=== PATIENT | female | born 1935 ===

== ENCOUNTER 2016-06-23 22:15 | Inpatient (IN) | payer OTHER ==
[~2016-06-23] VITALS: Ht 162.6 cm; Wt 54.4 kg
--- NOTE | 2016-06-23 22:22 | ED AMS/SEIZURE/WEAK/DIZZY ---
History of Present Illness General Chief Complaint: General Adult Stated Complaint: BIBA FOR INCREASED AMS, FEVER Source: patient Exam Limitations: clinical condition Vital Signs & Intake/Output Vital Signs & Intake/Output Vital Signs Date Time Temp Pulse Resp B/P Pulse O2 O2 Flow FiO2 Ox Delivery Rate 06/238 103.8 06/239 98 Nasal 3.0L Cannula 06/23 2217 100.5 93 18 126/73 95 Room Air ED Intake and Output 06/24 0000 06/23 1200 Intake Total Output Total Balance Patient 120 lb Weight Allergies Coded Allergies: No Known Allergies (06/23/16) Reconcile Medications Aspirin (Ecotrin*) 81 MG TABLET.DR 1 TAB PO QAM HEART/BLOOD (Reported) Multivit-Min/FA/Lycopen/Lutein (Centrum Silver Tablet) 0.4 MG-300 MCG-250 MCG TABLET 1 TAB PO DAILY SUPPLEMENT (Reported) Triage Nurses Notes Reviewed? yes Onset: Gradual Duration: day(s): Timing: recent history Injury Environment: home Severity: moderate Modifying Factors: Improves With: rest. Associated Symptoms: cough HPI: 81 yo woman h/o parkinson's, from assisted living, presents with cough, phlegm, dyspnea. She was started on augmentin yesterday. Past History Travel History Traveled to [place] past 21 day No Medical History Any Pertinent Medical History? see below for history Neurological: Parkinson's disease Surgical History Surgical History: none Family History Hx Contributory? No Review of Systems Review of Systems Constitutional: Reports: no symptoms. EENTM: Reports: no symptoms. Respiratory: Reports: no symptoms. Cardiovascular: Reports: no symptoms. GI: Reports: no symptoms. Genitourinary: Reports: no symptoms. Musculoskeletal: Reports: no symptoms. Skin: Reports: no symptoms. Neurological/Psychological: Reports: no symptoms. Hematologic/Endocrine: Reports: no symptoms. Immunologic/Allergic: Reports: no symptoms. All Other Systems: Reviewed and Negative Physical Exam Physical Exam General Appearance: well developed/nourished, mild distress Head: atraumatic, normal appearance Eyes: Bilateral: normal appearance. Ears, Nose, Throat: normal pharynx, normal ENT inspection Neck: normal inspection, supple, full range of motion Respiratory: chest non-tender, no respiratory distress, rhonchi Cardiovascular: regular rate/rhythm Gastrointestinal: normal bowel sounds, soft, non-tender, no organomegaly Back: normal inspection, normal range of motion Extremities: normal range of motion Neurologic/Psych: no motor/sensory deficits, awake, alert, oriented x 3 Skin: intact, normal color, cyanosis Core Measures ACS in differential dx? No CVA/TIA Diagnosis: No Severe Sepsis Present: No Septic Shock Present: No Progress Differential Diagnosis: pneumonia versus bronchitis versus COPD. I doubt congestive heart failure primary cardiac issue. Plan of Care: Orders Procedure Date/time Status Nothing by Mouth 06/24 B Active Saline Lock 06/24 30 Active Misc Message 06/24 30 Active ED Holding Orders 06/24 30 Active Admit to inpatient 06/24 30 Active Vital Signs 06/24 30 Active Code Status 06/24 30 Active Patient Data 06/23 2355 Active BLOOD CULTURE 06/23 2224 Active RAPID VIRAL INFLUENZA A 06/23 2221 Active BLOOD CULTURE 06/23 2221 Active TROPONIN LEVEL 06/23 2221 Complete COMPREHENSIVE METABOLIC PANEL 06/23 2221 Complete CBC WITHOUT DIFFERENTIAL 06/23 2221 Complete EKG 06/23 2221 Active Laboratory Tests 06/23/162229: Anion Gap 10, Estimated GFR > 60, BUN/Creatinine Ratio 22.9, Glucose 92, Calcium 8.4, Total Bilirubin 0.7, AST 38 H, ALT 36, Alkaline Phosphatase 71, Troponin I < 0.01, Total Protein 6.7, Albumin 3.7, Globulin 3.0, Albumin/Globulin Ratio 1.2 , CBC w Diff NO MAN DIFF REQ, RBC 4.51, MCV 90.6, MCH 30.4, RDW 14.4, MPV 8.3, Gran % 89.4 H, Lymphocytes % 4.1 L, Monocytes % 6.1, Eosinophils % 0.1, Basophils % 0.3, Absolute Granulocytes 6.4, Absolute Lymphocytes 0.3 L, Absolute Monocytes 0.4, Absolute Eosinophils 0, Absolute Basophils 0, PUBS MCHC 33.5 Microbiology 06/23 2239 BLOOD: Blood Culture - RECD 06/23 2229 BLOOD: Blood Culture - RECD 06/23 2221 NASOPHARYN: Influenza Virus A & B Rapid Smear - ORD Diagnostic Imaging: Viewed by Me: Radiology Read. Discussed w/RAD: Radiology Read. CXR Impression: no acute abnormality, no infiltrates, normal size heart, normal mediastinum Initial ED EKG: normal axis, normal intervals, normal p-waves, normal QRS complex, normal sinus rhythm Comments: PATIENT: FLOWER ADAMS PRESENT AGE: 81 PATIENT ACCOUNT NO: [id number] : 33 LOCATION: [facility] ORDERING PHYSICIAN: RENZO BLAKE MD SERVICE DATE: 06/23/16 EXAM TYPE: RAD - XRY-PORTABLE CHEST XRAY EXAMINATION: XR PORTABLE CHEST CLINICAL INFORMATION: Dyspnea. Hypoxia. COMPARISON: None TECHNIQUE: Portable AP portable view of the chest was obtained. 11:31 PM FINDINGS: Pacemaker leads in right atrium and right ventricle. Heart size normal. No pulmonary vascular congestion. Hyperinflation of lungs. Lungs are clear. No pleural effusion. IMPRESSION: No acute change of chest. DICTATED BY: MIRIAM SANDHU MD DATE/TIME DICTATED:06/23/162352 DATASTAGE ARCHITECT:DONNY DATE/TIME TRANSCRIBED:06/23/162352 CONFIDENTIAL, DO NOT COPY WITHOUT APPROPRIATE AUTHORIZATION. <Electronically signed in Other Vendor System> SIGNED BY: MIRIAM SANDHU MD 06/23/162356 Departure Departure Disposition: STILL A PATIENT Condition: Stable Clinical Impression Primary Impression: Pneumonia Secondary Impressions: Sepsis Departure Forms: Customer Survey General Discharge Information Admission Note Spoke With: FANNIE SHAH,PITA Documentation of Exam: Documentation of any treatments & extenuating circumstances including Concerns Regarding Discharge (functional status, medication knowledge or non-compliance, living conditions, etc.) that warrant an admission rather than observation: Patient with cough phlegm dyspnea hypoxia to 85% on room air. Chest x-ray negative, this is most consistent with pneumonia versus bronchitis. Patient merits O2 support IV antibiotics. Patient stable for gen med Critical Care Note Critical Care Note Critical Care Time: 30-74 min
--- NOTE | 2016-06-23 22:24 | NUR ---
PT REFUSING FLU SWAB AT THIS TIME, PT BECAME SLIGHTLY AGITATED, STATING "NO DO NOT PUT THAT THING UP MY NOSE, I DONT WANT IT!" CHARGE NURSE MADE AWARE
--- NOTE | 2016-06-23 22:27 | NUR ---
PT BIBA FROM ECF. PT C/O ALTERED MENTAL STATUS AND INCREASED TEMPERATURE. PER STAFF PT IS SLIGHTLY CONFUSED AT BASELINE BUT HAS BECOME WORSE OVER THE PAST COUPLE OF DAYS. PER EMS TEMPERATURE ON ARRIVAL WAS 101. IN THE FIELD TEMP WAS 103.8. PT HAS HX OF PACEMAKER, AND PARKINSONS. AT BEDSIDE
--- NOTE | 2016-06-23 22:27 | NUR ---
PT PLACED ON QUALITY ASSURANCE TEST PROGRAM MANAGER, ESTHER RAGSDALE AT BEDSIDE FOR BLOOD DRAW, PT SATING 88% ON RA, PLACED ON 3L, UP TO 98%. MADE AWARE.
--- NOTE | 2016-06-23 22:30 | NUR ---
BLOOD DRAWN AND SENT TO LAB. LAV,SST,BLUE,GLOVER, 1ST SET OF BLOOD CULTURES.
--- NOTE | 2016-06-23 22:43 | NUR ---
EKG IN PROGRESS
--- NOTE | 2016-06-23 22:44 | NUR ---
2ND SET OF BLOOD CULTURES DRAWN AND SENT TO LAB.
--- NOTE | 2016-06-23 23:08 | NUR ---
PT MEDICATED WITH OFFIRMEV, 1G ROCEPHIN, AND 500MG ZITHROMYCIN PER EMAR
[2016-06-23 23:17] LABS: ABSOLUTE BASOPHIL COUNT 0 /CUMM (0.0-0.2); ABSOLUTE EOSINOPHIL COUNT 0 /CUMM (0.0-0.7); ABSOLUTE GRANULOCYTE CT 6.4 /CUMM (1.4-6.5); ABSOLUTE LYMPH COUNT 0.3 /CUMM (1.2-3.4); ABSOLUTE MONOCYTE COUNT 0.4 /CUMM (0.10-0.60); BASOPHIL % 0.3 % (0.0-2.0); EOSINOPHIL % 0.1 % (0-5); HEMATOCRIT 40.9 % (37-47); MEAN CORPUSCULAR HGB 30.4 PG (27.0-31.0); MEAN CORPUSCULAR HGB CONC 33.5 G/DL (33.0-37.0); MEAN CORPUSCULAR VOLUME 90.6 FL (81.0-99.0); MEAN PLATELET VOLUME 8.3 FL (7.4-10.4); PLATELET COUNT 144 /CUMM (130-400); RBC DISTRIBUTION WIDTH 14.4 % (11.5-14.5); RED BLOOD CELL CT 4.51 /CUMM (4.20-5.40); WHITE BLOOD CELL COUNT 7.2 /CUMM (4.8-10.8)
[2016-06-23] MEDS ORDERED: CENTRUM SILVER1 EAC3 PO (23:22)
[2016-06-23] MEDS ORDERED: ASPIRIN EC81 M1 PO (23:22)
[2016-06-23 23:32] LABS: GRANULOCYTE % 89.4 % (42.2-75.2)
--- NOTE | 2016-06-23 23:57 | RADIOLOGY REPORT ---
EXAMINATION: XR PORTABLE CHEST CLINICAL INFORMATION: Dyspnea. Hypoxia. COMPARISON: None TECHNIQUE: Portable AP portable view of the chest was obtained. 11:31 PM FINDINGS: Pacemaker leads in right atrium and right ventricle. Heart size normal. No pulmonary vascular congestion. Hyperinflation of lungs. Lungs are clear. No pleural effusion. IMPRESSION: No acute change of chest.
--- NOTE | 2016-06-23 23:59 | NUR ---
PT MEDICATED WITH 30MG TORADOL FOR FEVER PER
--- NOTE | 2016-06-24 00:48 | History & Physical ---
STEFANIE SHAH,[facility] 06/24/16 0047: General Information and HPI MD Statement: I have seen and personally examined FLOWER ADAMS and documented this H&P. The patient is a 81 year old F who presented with a patient stated chief complaint of cough, altered mental status and fever . Source of Information: patient, EMS Exam Limitations: clinical condition, confusion, dementia History of Present Illness: Ms Adams is an 81-year-old female medical history of Parkinson's, chronic pain, diverticulosis who was brought in by ambulance to the emergency department on 06/23/2016 after being found to be febrile at 103F at her [facility] facility. Report from [facility] states that the patient had a fluctuating temperatures over the course of the evening and they found that the patient was febrile up to a maxiumum of 103 F. This prompted them to send her to the emergency department. Nurse at [facility] does state that the patient generally has good health, however on 06/21/2016, the patient experienced cough and symptoms of a URI prompting the facility to do a chest x-ray and routine blood work. She was started on Augmentin 875/125 mg by mouth twice a day 10 days. In the emergency department the patient did endorse cough and stated cough was nonproductive in nature. She states that her symptoms may have begun on Sunday06/19/2016. She also endorses 2 month history of dizziness. Patient denies any fever, chills, nausea, vomiting. Allergies/Medications Allergies: Coded Allergies: No Known Allergies (06/23/16) Home Med list Aspirin (Ecotrin*) 81 MG TABLET. 1 TAB PO QAM HEART/BLOOD (Reported) Multivit-Min/FA/Lycopen/Lutein (Centrum Silver Tablet) 0.4 MG-300 MCG-250 MCG TABLET 1 TAB PO DAILY SUPPLEMENT (Reported) Compliance With Home Meds: GOOD Past History Travel History Traveled to [place] past 21 day No Medical History Neurological: Parkinson's disease EENT: NONE Respiratory: pneumonia Surgical History Surgical History: none Past Family/Social History Psychosocial History Where do you live? Extended Care Facility Who Do You Live With? spouse Services at Home: None Primary Language: Iraqi Functional Ability ADLs Needs Assist: dressing, eating, toileting, bathing. Ambulation: walker IADLs Needs Assist: shopping, housework, finances, food prep, telephone, transportation, medication admin. Review of Systems Review of Systems Constitutional: Denies: chills, diaphoresis, fever, malaise. Cardiovascular: Denies: chest pain, edema, orthopena, palpitations. Respiratory: Reports: cough. Denies: orthopnea, short of breath, sputum production. GI: Denies: abdominal pain, bloating, constipation, diarrhea, distention, melena, nausea, vomiting. Genitourinary: Denies: discharge, dysuria, frequency, hematuria, hesitation. Musculoskeletal: Denies: back pain, gout, joint pain, joint swelling, muscle pain. Exam & Diagnostic Data Last 24 Hrs of Vital Signs/I&O Vital Signs Date Time Temp Pulse Resp B/P Pulse O2 O2 Flow FiO2 Ox Delivery Rate 06/24 0121 98.2 75 19 101/64 97 Nasal 2.0L Cannula 06/23 2308 103.8 06/23 2229 98 Nasal 3.0L Cannula 06/23 2218 100.5 93 18 126/73 95 Room Air Intake & Output 06/24 0800 06/24 0000 06/23 1600 Intake Total 650 Output Total Balance 650 Intake, IV 650 Patient 54.431 kg Weight Physical Exam General Appearance Alert, Cooperative, No Acute Distress, Bilaterral Tremors of Upper and Lower Extremities HEENT PERRLA, EOMI, Muccous Membranes Dry Neck Supple Lymphatic Cervical nl Cardiovascular Regular Rate, Normal S1, Normal S2, No Murmurs, Pacemaker Lungs Clear to Auscultation Abdomen Normal Bowel Sounds, Soft, No Tenderness, No Hepatospenomegaly Neurological Strength at 5/5 X4 Ext, Sensation Intact Extremities No Cyanosis, No Edema, Normal Pulses Vascular Normal Pulses Last 24 Hrs of Labs/Micheal: Laboratory Tests 06/23/160: Anion Gap 10, Estimated GFR > 60, BUN/Creatinine Ratio 22.9, Glucose 92, Calcium 8.4, Total Bilirubin 0.7, AST 38 H, ALT 36, Alkaline Phosphatase 71, Troponin I < 0.01, Total Protein 6.7, Albumin 3.7, Globulin 3.0, Albumin/Globulin Ratio 1.2 , CBC w Diff NO MAN DIFF REQ, RBC 4.51, MCV 90.6, MCH 30.4, RDW 14.4, MPV 8.3, Gran % 89.4 H, Lymphocytes % 4.1 L, Monocytes % 6.1, Eosinophils % 0.1, Basophils % 0.3, Absolute Granulocytes 6.4, Absolute Lymphocytes 0.3 L, Absolute Monocytes 0.4, Absolute Eosinophils 0, Absolute Basophils 0, PUBS MCHC 33.5 Microbiology 06/23 2239 BLOOD: Blood Culture - RECD 06/23 2229 BLOOD: Blood Culture - RECD 06/23 2221 NASOPHARYN: Influenza Virus A & B Rapid Smear - ORD Diagnostic Data EKG Results Rate 98 V paced Complex LBBB QT 380 CXR Results EXAM TYPE: RAD - XRY-PORTABLE CHEST XRAY IMPRESSION: No acute change of chest. DICTATED BY: MIRIAM SANDHU MD Assessment/Plan Assessment: Ms Adams is an 81-year-old female past medical history of Parkinson's disease, chronic pain, and diverticulosis who presented to the emergency department on 06/23/2016 with symptoms of upper respiratory tract infection. Will admit the patient to general medicine for close monitoring and antibiotic administration. #Hypoxia, requiring O2 Suplementation Likely due to community-acquired pneumonia versus HCAP, versus Influenza. Continue patient on ceftriaxone and azithromycin Lower respiratory cultures, tailor coverage appropirately. Viral Flu Rapid Influenza, if positive begin the patient on Tamiflu, consider discontinuing antibiotics. CBC in AM #Tachycardia and increased O2 Requirements CTA rule out PE #AMS Rule out UTI. UA, UC and Urine toxicology #History of dizziness Check orthostatics in a.m. Gentle IVF #History of Parkinson's disease Confirm medication list in a.m. Does not appear that the patient is on any antiparkinson medication #Diet Nothing by mouth for now consider swallow eval in a.m. #DVT prophylaxis Heparin subcutaneous #CODE STATUS Full Code As Ranked By This Provider Problem List: 1. Parkinsons disease 2. Hypoxia 3. Influenza Core Measures/Miscellaneous Acute Coronary Syndrome ACS Diagnosis: No Cerebrovascular Accident CVA/TIA Diagnosis: No Congestive Heart Failure CHF Diagnosis: No Venous Thromboembolism VTE Risk Factors: Age > 40 VTE Prophylaxis Ordered Inpt: Pharm- Lovenox No Mech VTE prophylaxis d/t: No contraindications No VTE Pharm Prophylaxis d/t: No contraindications VTE Diagnosis: No VTE Type: NONE VTE Confirmed by (Test): NONE Severe Sepsis Severe Sepsis Present: No Septic Shock Septic Shock Present: No Miscellaneous Documentation Attending Case Discussed With: MILADY GRECO [facility] Primary Care Physician: NICKIE SCHAEFER MD Patient sees these Specialists NA Level of Patient Care: General Medicine SURINDER SHAH,[facility] 06/24/16 0130: Resident Review Statement Resident Statement: examined this patient, discussed with sport intern, agreed with sport intern Other Findings: 81 y/o woman with a PMH of Parkinson's Disease and PPM placement, who presents to the ED after being sent in from her Assisted Living for cough and fevers. She was found to be febrile to 103.8 on the field. After arrival in the ED, she desaturated to 89% and was put on 3.0L after which she was found to be saturating at 98%. Patient was found to be confused at the time of the interview and could not give us a clear timeline regarding her symptoms, if any. Her POA is her son, Adarsh, who lives in [place]. Per the facility, the patient was found to be coughing with a temperature. She had a CXR, CBC and CMP done, results of which are currently unavailable. She was subsequently started on Augmentin on . Vitals in the ED: 103.8/93/18/126/73/98% on 3.0L Pertinent labs: Were WNL Exam: AAOX2, not oriented to time. Diminished lung sounds bilaterally. S1S2 heard, RRR. Abdomen soft and non-tender. No pedal edema. Problem List: 1) Hypoxia 2/2 PNA (CAP) vs PE vs Influenza 2) Parkinson's Disease with baseline confusion Plan: * Admit to General Medicine * CTA to r/o PE * Start IVF * Ceftriaxone and Azithromycin for CAP * Check Utox to r/o other medications as a source of ongoing confusion. * Check U/A, Rapid Flu * DVT PPx: SubQ Heparin * Pain Pathway: Tylenol PRN * Code staus: No paperwork found regarding the patient's code status. Will keep her as a FC for now. Please get in touch with the family in the AM, so this can be clarified. FANNIE SHAH, [facility] 06/24/16 0541: Attending MD Review Statement Attending Statement Attending MD Statement: examined this patient, discuss w/resident/PA/SYSTEMS ADMIN, agreed w/resident/PA/SYSTEMS ADMIN Attending Assessment/Plan: 81 yo F with h/o Parkinson's disease, with PPM (?reason), is brought in from assisted living ([facility]), for confusion, cough and fever of 101. Patient unable to provide a clear history. Patient was apparently started on Augmentin 1 day prior for possible pneumonia. While in the ER, her temp was 103, sats 88% RA --> 98% on 3L, BP 114/60. Labs unremarkable. Flu swab positive. CXR: neg. CTA: no PE. EKG: paced. 1. Hypoxia and fever in the setting of influenza. No evidence of pneumonia. GM admit, TRC nebs, follow cultures. In the ER, she received ceftriaxone and azithro for clincial pneumonia, however patient does not have leukocytosis, CT neg for pneumonia, hence will DC antibiotics. Treat influenza with tamiflu. Check UA, UC and urine drug screen. Gentle IV fluids. DVT ppx Lovenox. Full code (please reach out to Son who is POA in AM as code status needs to be clarified).
--- NOTE | 2016-06-24 00:52 | NUR ---
HOUSE STAFF AT BEDSIDE
--- NOTE | 2016-06-24 00:58 | NUR ---
PT PLACED ON BEDPAN BY ESTHER MORA, PT HAS NO URINE OUTPUT
--- NOTE | 2016-06-24 01:15 | NUR ---
BED ASSIGNMENT [id number]
--- NOTE | 2016-06-24 01:29 | NUR ---
REPORT GIVEN TO WANDY CAMPOS
--- NOTE | 2016-06-24 01:44 | NUR ---
PT ADAMANTLY REFUSED BOTH SETS OF FLU SWABS, PT BECAME SLIGHTLY AGITATED AND WOULD NOT ALLOW THIS RN TO OBTAIN SAID FLU SWAB. CHARGE NURSE MADE AWARE.
--- NOTE | 2016-06-24 01:49 | NUR ---
PT PLACED ON BEDPAN WITH ASSISTANCE BY THIS RN AND MST MORGAN
--- NOTE | 2016-06-24 01:51 | NUR ---
PT ASKED AGAIN ABOUT OBTAINING FLU SWAB, PT DECLINED ADAMANTLY. CHARGE NURSE MADE AWARE.
--- NOTE | 2016-06-24 02:05 | NUR ---
PT TO CAT SCAN VIA STRETCHER
[2016-06-24 03:08] VITALS: BP 114/60
--- NOTE | 2016-06-24 03:24 | CT SCAN REPORT ---
EXAMINATION: CT ANGIOGRAM OF THE CHEST WITH AND WITHOUT CONTRAST (CT PULMONARY ANGIOGRAM FOR PE) CLINICAL INFORMATION: SUDDEN DESATURATION WITH MINIMAL TACHYCARDIA COMPARISON: None TECHNIQUE: Prior to contrast administration, noncontrast localization images were obtained. Subsequently, multidetector volumetric imaging was performed from the thoracic inlet to below the diaphragms following the administration of 95 mL Optiray intravenous contrast. No contrast reaction reported Sagittal, coronal, and MIP oblique sagittal reformatted images were obtained on the CT workstation, uploaded to PACS, and reviewed. Total exam dose-length product 216.48 mGy-cm FINDINGS: QUALITY OF STUDY/CONTRAST BOLUS: Satisfactory. PULMONARY ARTERIES: No central or segmental pulmonary emboli. THORACIC AORTA: Atherosclerotic vascular wall calcifications of aorta without aneurysm. LUNG: Linear scarring or atelectasis at lung bases. No acute infiltrate. Central bronchial airways are open. PLEURA: No pleural effusion or pneumothorax. MEDIASTINUM: Normal heart size. No pericardial effusion. No hilar or mediastinal lymphadenopathy. No evidence of septal bowing or right heart strain. Pacemaker leads in heart. CHEST WALL/AXILLA: No axillary or internal mammary lymphadenopathy. OSSEOUS STRUCTURES: No acute or suspicious osseous abnormality. UPPER ABDOMEN: Unremarkable. No reflux of contrast into the hepatic veins to suggest elevated right heart pressures. IMPRESSION: No acute abnormality. No evidence of pulmonary embolism. VTE: negative
--- NOTE | 2016-06-24 04:00 | NUR ---
PT ARRIVED TO FLOOR AT 0246 VIA STRETCHER. PT DROWSY/AROUSABLE OREINTED TO SELF ONLY. IV TO LFA #18 PREHOSPITAL AND #20 RFA 06/23/16. IV FLUIDS STARTED. SKIN INTACT, LUNGS CLEAR, ON 2L NC, VITALS STABLE. ACTIVE ORDERS FOR FLU SWAB COMPLETED. PT UNABLE TO VOID AT THIS TIME FOR URINE SAMPLE, BLADDER SCAN SHOWED 120ML. PT IS UNABLE TO PROVIDE MEDIAL HISTORY. OFFERS NO COMPLIANTS AT THIS TIME. WILL CONTINUE TO MONITOR.
--- NOTE | 2016-06-24 04:19 | NUR ---
LAB CALLED AT 0415, PT POSITIVE FOR INFLUENZA A. JACQUELYN WATTS MD MADE AWARE, PT ON DROPLET PRECAUTIONS
--- NOTE | 2016-06-24 05:42 | Admission Certification ---
Admission Certification Certification Statement - As attending physician, I certify that at the time of - admission, based on clinical presentation, severity of - symptoms, need for further diagnostic testing and - therapeutic interventions, and risk of adverse outcomes - without in-hospital treatment, in my clinical assessment, - this patient requires an acute hospital stay for a minimum - of two nights or longer. I have also considered psychsocial - factors such as support system, advanced age, financial - issues, cognitive issues, and failed out-patient treatments, - past re-admission history, safety of patient, and lack of - compliance as applicable. Specific rationale supporting this admission is: Hypoxia, fever with confusion in the setting of Influenza.
[2016-06-24 07:04] VITALS: BP 146/78
--- NOTE | 2016-06-24 14:29 | PN- Att Addend ---
Attending Addendum Attending Brief Note Patient seen and examined. 81-year-old female past medical history of Parkinson 's disease and previous pacemaker placement who is here with acute influenza. She was febrile to 103 and her flu swab is positive. She is on Tamiflu by mouth. Her CTA was negative for pneumonia so she doesn't have pneumonitis or a superimposed bacterial pneumonia and no need to continue antibiotics. Will encourage by mouth intake and DC IV fluids. PT eval and out of bed.
[2016-06-24 15:03] VITALS: BP 130/70
[2016-06-24 22:00] VITALS: BP 150/80
[2016-06-25 06:53] VITALS: BP 144/78
[2016-06-25 08:22] LABS: ABSOLUTE BASOPHIL COUNT 0 /CUMM (0.0-0.2); ABSOLUTE EOSINOPHIL COUNT 0 /CUMM (0.0-0.7); ABSOLUTE LYMPH COUNT 1.5 /CUMM (1.2-3.4); ABSOLUTE MONOCYTE COUNT 0.5 /CUMM (0.10-0.60); BASOPHIL % 0.7 % (0.0-2.0); EOSINOPHIL % 0.2 % (0-5); GRANULOCYTE % 49.4 % (42.2-75.2); HEMATOCRIT 42.4 % (37-47); MEAN CORPUSCULAR HGB 30.7 PG (27.0-31.0); MEAN CORPUSCULAR HGB CONC 33.7 G/DL (33.0-37.0); MEAN CORPUSCULAR VOLUME 91.1 FL (81.0-99.0); MEAN PLATELET VOLUME 8.3 FL (7.4-10.4); PLATELET COUNT 122 /CUMM (130-400); RBC DISTRIBUTION WIDTH 14.2 % (11.5-14.5); RED BLOOD CELL CT 4.65 /CUMM (4.20-5.40); WHITE BLOOD CELL COUNT 4.1 /CUMM (4.8-10.8)
--- NOTE | 2016-06-25 08:53 | PN- Att Addend ---
Attending Addendum Attending Brief Note Patient appears to be doing okay. She denies any complaints but she's not a reliable informant. She denies cough chest pain or shortness of breath. On exam her MAXIMUM TEMPERATURE is 100.6, blood pressures 140/78, respiratory rate is 18, sat is 97% on 2 L. Lungs have decreased breath sounds at the bases, heart is S1-S2 regular, abdomen is soft nontender and she has no pedal edema. Labs are pending. She is an 81-year-old with some cognitive impairment it appears although not documented in the history. She is here with acute influenza that is being treated with Tamiflu. CTA was negative for pneumonia or PE. She was dehydrated with hypovolemic hyponatremia and got some IV fluids. Today we'll try and taper off her oxygen and have PT work with her.
[2016-06-25 15:47] VITALS: BP 140/80
[2016-06-25 23:42] VITALS: BP 136/76
[2016-06-26 07:13] VITALS: BP 140/82
--- NOTE | 2016-06-26 07:28 | PN- Housestaff ---
LEON SHAH,KISHA 06/26/16 0728: Subjective Follow-up For: positive flu h/o PD Subjective: patient has been tolerating well Review of Systems Constitutional: Reports: see HPI. Objective Last 24 Hrs of Vital Signs/I&O Vital Signs Date Time Temp Pulse Resp B/P Pulse O2 O2 Flow FiO2 Ox Delivery Rate 06/26 0713 96.8 74 18 140/82 96 Room Air 06/26 0000 94 Room Air 06/25 2342 97.5 66 16 136/76 94 Room Air 06/25 1600 Room Air 06/25 1547 97.5 72 18 140/80 98 06/25 1430 Room Air Intake & Output 06/26 1600 06/26 0800 06/26 0000 Intake Total 150 970 Output Total 2351 Balance 150 -1381 Intake, IV 10 Intake, Oral 150 960 Number 1 Bowel Movements Output, Stool 1 Output, Urine 2350 Physical Exam General Appearance: Alert, Oriented X3 Skin: No Rashes, No Breakdown HEENT: Atraumatic, PERRLA Neck: Supple, No JVD Lymphatic: Axillary nl, Cervical nl Cardiovascular: Normal S1, Normal S2 Lungs: b/l decreased airway entry Abdomen: Soft, No Tenderness Neurological: Normal Speech, Strength at 5/5 X4 Ext Extremities: No Clubbing, No Cyanosis Assessment/Plan Assessment: 81 y/o woman with a PMH of Parkinson's Disease , who presents to the ED after being sent in from her Assisted Living for cough and fevers. She was found to be febrile to 103.8 on the field. After arrival in the ED, she desaturated to 89% and was put on 3.0L after which she was found to be saturating at 98%. Patient is being moniotored in the hospital for the following problems 1. Acute hypoxic respiratory failure which is resolved 2. Positive influenza type A currently on Tamiflu 3. History of Parkinson's disease 4. History of and pacemaker placement Plan We will continue monitoring on general medicine floor, the patient has responded well to the treatment and has been tapered off the oxygen therapy. She is currently ambulating and breathing on room air. She is on day 3 of Tamiflu Patient needs to ambulate and feels that she is not strong enough to be discharged today. Physical therapy recommended home physical therapy for further evaluation for the patient We will communicate with the patient's daughter and talk about further discharge plan-likely STR placement. Patient is full code DVT prophylaxis at all times CommunicATED TO CM for possible STR placement. Problem List: 1. Pneumonia 2. Hypoxia 3. Influenza Pain Ratin Pain Location: back Pain Goal: Remain pain free Pain Plan: po tylenol asneeded Tomorrow's Labs & Rationales: cbc and BEP AYDEE FUNK MD 06/26/16 1503: Attending MD Review Statement Attending Statement Attending MD Statement: examined this patient, discuss w/resident/PA/DIRECTOR OF HOME CARE HOSPICE, agreed w/resident/PA/DIRECTOR OF HOME CARE HOSPICE, reviewed EMR data (avail), discussed with nursing, discussed with case mgmt, amended to note Attending Assessment/Plan: The patient was seen and discussed with house staff. Agree with the plan of care as outlined. Continue Tamiflu. Note: The patient did have acute hypoxic respiratory failure on admission with pulse ox on RA in low 80's. Now weaned off of oxygen.
[2016-06-26] MEDS ORDERED: TAMIFLU30 M1 PO (11:37)
--- NOTE | 2016-06-26 11:38 | Patient Discharge Instructions ---
Discharge Instructions General Discharge Information You were seen/treated for: Respiratory distress secondary to flu History of Parkinson's disease Special Instructions: The follow-up with the primary care physician 1 week Acute Coronary Syndrome Inclusion Criteria At DC or during hospital stay patient has or had the following: ACS DIAGNOSIS No Discharge Core Measures Meds if any: Prescribed or Continued at Discharge Meds if any: NOT Prescribed or Continued at Discharge Congestive Heart Failure Inclusion Criteria At DC or during hospital stay patient has or had the following: CHF DIAGNOSIS No Discharge Core Measures Meds if any: Prescribed or Continued at Discharge Meds if any: NOT Prescribed or Continued at Discharge Cerebrovascular accident Inclusion Criteria At DC or during hospital stay patient has or had the following: CVA/TIA Diagnosis No Discharge Core Measures Meds if any: Prescribed or Continued at Discharge Meds if any: NOT Prescribed or Continued at Discharge Venous thromboembolism Inclusion Criteria VTE Diagnosis No VTE Type NONE VTE Confirmed by (Test) NONE Discharge Core Measures - Per Current guidelines, there needs to be overlap - treatment for the first 5 days of Warfarin therapy. - If discharged on Warfarin prior to 5 days of - overlap therapy, the patient will need to be - assessed for post discharge needs including - *Post discharge parental anticoagulation - *Warfarin and/or parental anticoagulation education - *Follow up date to check INR post discharge At least 5 days overlap therapy as Inpatient No Meds if any: Prescribed or Continued at Discharge Note: Overlap Therapy is Warfarin and Anticoagulant Meds if any: NOT Prescribed or Continued at Discharge
[2016-06-26 16:24] VITALS: BP 130/80
[2016-06-26 22:44] VITALS: BP 140/80
--- NOTE | 2016-06-27 04:57 | Discharge Summary ---
Visit Information Visit Dates Admission Date: 06/24/16 Discharge Date: 06/30/16 Hospital Course Course Attending Physician: AYDEE FUNK MD Primary Care Physician: NICKIE SCHAEFER MD Hospital Course: 80-year-old female with a past medical history of Parkinson disease, permanent pacemaker placement, resident of an assisted living, who presented to the [facility] with persistent shortness of breath and productive cough. The patient was found to be hypoxic in the emergency department and the flu swab done in the emergency department was positive for rapid influenza type a The patient was then admitted to the general medicine floor with initial vitals white physical exam and imaging as follows: While in the ER, her temp was 103, sats 88% RA --> 98% on 3L, BP 114/60. Labs unremarkable. Flu swab positive. CXR: neg. CTA: no PE. EKG: paced. The patient was admitted to general medicine floor and was treated as follows Hospital course 1. Positive rapid flu with type A influenza 2. History of Parkinson disease 3. History of pacemaker placement The patient was started on Tamiflu, and is completing a 5 day course of the medication on 06/28/2016. The patient was initially on nasal oxygen but was done later weaned off and the patient has been on room air saturating well in the last 48 hours. The patient also ambulated with physical therapy and was found not to desaturate on room air. She was recommended by the physical therapy to be discharged to short-term rehabilitation for further management The patient needs to follow-up with her primary care physician in one week of discharge Allergies: Coded Allergies: No Known Allergies (06/23/16) Pertinent Lab Results: Laboratory Tests 06/25 0720 Chemistry Sodium (137 - 145 mmol/L) 136 L Potassium (3.5 - 5.1 mmol/L) 3.8 Chloride (98 - 107 mmol/L) 101 Carbon Dioxide (22 - 30 mmol/L) 28 Anion Gap (5 - 16) 7 BUN (7 - 17 mg/dL) 13 Creatinine (0.5 - 1.0 mg/dL) 0.8 Estimated GFR (>60 ml/min) > 60 BUN/Creatinine Ratio (7 - 25 %) 16.3 Hematology CBC w Diff NO MAN DIFF REQ WBC (4.8 - 10.8 /CUMM) 4.1 L RBC (4.20 - 5.40 /CUMM) 4.65 Hgb (12.0 - 16.0 G/DL) 14.3 Hct (37 - 47 %) 42.4 MCV (81.0 - 99.0 FL) 91.1 MCH (27.0 - 31.0 PG) 30.7 RDW (11.5 - 14.5 %) 14.2 Plt Count (130 - 400 /CUMM) 122 L MPV (7.4 - 10.4 FL) 8.3 Gran % (42.2 - 75.2 %) 49.4 Lymphocytes % (20.5 - 51.1 %) 37.8 Monocytes % (1.7 - 9.3 %) 11.9 H Eosinophils % (0 - 5 %) 0.2 Basophils % (0.0 - 2.0 %) 0.7 Absolute Granulocytes (1.4 - 6.5 /CUMM) 2.0 Absolute Lymphocytes (1.2 - 3.4 /CUMM) 1.5 Absolute Monocytes (0.10 - 0.60 /CUMM) 0.5 Absolute Eosinophils (0.0 - 0.7 /CUMM) 0 Absolute Basophils (0.0 - 0.2 /CUMM) 0 PUBS MCHC (33.0 - 37.0 G/DL) 33.7 Disposition Summary Disposition Principal Diagnosis: Positive influenza Additional Diagnosis: h/o Parkinson's disease Discharge Disposition: SNF Discharge Instructions General Discharge Information Code Status: Full Code Patient's Diet: As tolerated Patient's Activity: As tolerated Follow-Up Instructions/Appts: Please follow-up with the primary care physician in one week Tamiflu to be finished on 06/28/2016 Medications at Discharge Discharge Medications: Continue taking these medications: Aspirin (Ecotrin*) 81 MG TABLET.DR 1 Tablet ORAL Every Morning Comments: Last Taken:06/30/16 Time:9AM Multivit-Min/FA/Lycopen/Lutein (Centrum Silver Tablet) 0.4 MG-300 MCG-250 MCG TABLET 1 Tablet ORAL DAILY Comments: Last Taken: Time:NOT GIVEN ON THIS ADMISSION Copies To: OLIVE SHAH,NICKIE Morales Attending Review Statement Documenting Attending: AYDEE FUNK MD Other Findings: The patient was seen and discussed with house staff. Agree with the plan of care upon discharge.
--- NOTE | 2016-06-27 04:57 | PN- Housestaff ---
LEON SHAH,KISHA 06/27/16 0456: Subjective Follow-up For: Positive positive stool and currently being treated with Tamiflu Subjective: Patient has been doing fine. No respiratory symptoms Review of Systems Constitutional: Reports: see HPI. Objective Last 24 Hrs of Vital Signs/I&O Vital Signs Date Time Temp Pulse Resp B/P Pulse O2 O2 Flow FiO2 Ox Delivery Rate 06/27 0737 97.8 72 14 150/84 98 Room Air 06/27 0000 96 Room Air 06/26 2244 98.8 76 18 140/80 96 Room Air 06/26 1624 98.2 80 20 130/80 98 06/26 1126 Room Air 06/26 1125 Room Air 2.0L Intake & Output 06/27 1600 06/27 0800 06/27 0000 Intake Total 400 500 Output Total Balance 400 500 Intake, Oral 400 500 Physical Exam General Appearance: Alert, Oriented X3 Skin: No Rashes, No Breakdown HEENT: Atraumatic, PERRLA Neck: Supple, No JVD Cardiovascular: Regular Rate, Normal S1, Normal S2 Lungs: bilateral normal chest expansion Abdomen: Soft, No Tenderness Assessment/Plan Assessment: 81 y/o woman with a PMH of Parkinson's Disease , who presents to the ED after being sent in from her Assisted Living for cough and fevers. She was found to be febrile to 103.8 on the field. After arrival in the ED, she desaturated to 89% and was put on 3.0L after which she was found to be saturating at 98%. Patient is being moniotored in the hospital for the following problems 1. Acute hypoxic respiratory failure which is resolved 2. Positive influenza type A currently on Tamiflu 3. History of Parkinson's disease 4. History of and pacemaker placement Plan We will continue monitoring on general medicine floor, the patient has responded well to the treatment and has been tapered off the oxygen therapy. She is currently ambulating and breathing on room air. She is on day 4 of Tamiflu Evaluated by the physical therapy who recommended that the patient should be stable for [facility] discharge Continue with all other home medications Patient is full code DVT prophylaxis at all times CommunicATED TO CM, awaiting bed placement at [facility] Problem List: 1. Influenza Pain Ratin Pain Location: none Pain Goal: Remain pain free Pain Plan: po tylenol as needed Tomorrow's Labs & Rationales: none AYDEE FUNK MD 06/27/16 1740: Attending MD Review Statement Attending Statement Attending MD Statement: examined this patient, discuss w/resident/PA/DIRECTOR OF ANCILLARY SERVICES, agreed w/resident/PA/DIRECTOR OF ANCILLARY SERVICES, reviewed EMR data (avail), discussed with nursing, discussed with case mgmt, amended to note Attending Assessment/Plan: The patient was seen and discussed with house staff. Agree with plan of care as outlined.
[2016-06-27 07:37] VITALS: BP 150/84
[2016-06-27] MEDS ORDERED: TAMIFLU30 M1 PO (08:44)
[2016-06-27 14:42] VITALS: BP 130/72
[2016-06-27 22:51] VITALS: BP 140/80
[2016-06-28 06:57] VITALS: BP 120/80
--- NOTE | 2016-06-28 08:58 | PN- Housestaff ---
ANI SHAH,MONIQUE 06/28/16 0849: Subjective Follow-up For: Positive flue Complaints: no complaints Subjective: Feels well, no complaints. Eating breakfast this morning without any issues. Review of Systems Constitutional: Reports: see HPI. Objective Last 24 Hrs of Vital Signs/I&O Vital Signs Date Time Temp Pulse Resp B/P Pulse O2 O2 Flow FiO2 Ox Delivery Rate 06/28 0657 97.3 76 20 120/80 97 Room Air 06/27 2251 97.7 72 20 140/80 97 Room Air 06/27 1442 97.7 68 20 130/72 96 06/27 1050 Room Air Intake & Output 06/28 1600 06/28 0800 06/28 0000 Intake Total 240 Output Total 526 300 Balance -526 -60 Intake, Oral 240 Output, Stool 1 Output, Urine 525 300 Physical Exam General Appearance: Alert, Cooperative Skin: No Rashes HEENT: Atraumatic, PERRLA, EOMI Neck: Supple, No JVD Lymphatic: Cervical nl Cardiovascular: Regular Rate, Normal S1, Normal S2 Lungs: Clear to Auscultation, Normal Air Movement Abdomen: Normal Bowel Sounds, Soft, No Tenderness Neurological: Normal Speech Extremities: No Edema, Normal Pulses Current Medications: Current Medications Sig/Deangelo Start time Last Medication Dose Route Stop Time Status Admin Acetaminophen 650 MG Q6P PRN 06/24 0130 AC 06/25 PO 0203 Aspirin Buffered 81 MG QAM 06/25 1000 AC 06/27 PO 0958 Heparin Sodium 5,000 UNIT Q8 06/24 0600 AC 06/28 (Porcine) IN 0649 Oseltamivir Phosphate 30 MG BID 06/24 0600 AC 06/27 PO 06/28 2201 2229 Assessment/Plan Assessment: 81 y/o woman with a PMH of Parkinson's Disease, who presents to the ED after being sent in from her assisted living for cough and fevers. She was found to be febrile to 103.8 on the field. After arrival in the ED, she desaturated to 89% and was put on 3.0L after which she was found to be saturating at 98%. Patient is being moniotored in the hospital for the following problems 1. Acute hypoxic respiratory failure which is resolved 2. Positive influenza type A currently on Tamiflu 3. History of Parkinson's disease 4. History of pacemaker placement Plan We will continue monitoring on general medicine floor, the patient has responded well to the treatment and has been tapered off the oxygen therapy. She is currently ambulating and breathing on room air. She is on day 5 of Tamiflu, should complete course today. PT recommends that should be stable for [facility] discharge Continue with all other home medications Patient is full code DVT prophylaxis at all times Communicated TO CM, awaiting bed placement at [facility] Problem List: 1. Influenza 2. Parkinsons disease Pain Ratin Pain Location: no pain Pain Goal: Remain pain free Pain Plan: c/w current management Tomorrow's Labs & Rationales: no labs for tomorrow DVT/Prophylaxis: pharmacological AYDEE FUNK MD 06/28/16 1532: Attending MD Review Statement Attending Statement Attending MD Statement: examined this patient, discuss w/resident/PA/CHECKOUT OPERATOR, agreed w/resident/PA/CHECKOUT OPERATOR, reviewed EMR data (avail), discussed with nursing, discussed with case mgmt, amended to note Attending Assessment/Plan: The patient was seen and discussed with house staff. Agree with plan of care as outlined.
[2016-06-28 14:49] VITALS: BP 145/70
[2016-06-28 22:38] VITALS: BP 130/70
[2016-06-29 06:55] VITALS: BP 120/80
--- NOTE | 2016-06-29 08:15 | PN- Housestaff ---
ANI SHAH,MONIQUE 06/29/16 0812: Subjective Follow-up For: Positive flue Complaints: no complaints Subjective: Sitting in chair, having breakfast without any complaints. Review of Systems Constitutional: Reports: see HPI. Objective Last 24 Hrs of Vital Signs/I&O Vital Signs Date Time Temp Pulse Resp B/P Pulse O2 O2 Flow FiO2 Ox Delivery Rate 06/29 0655 97.9 87 20 120/80 96 Room Air 06/29 0000 93 Room Air 06/28 2238 97.3 70 20 130/70 93 Room Air 06/28 1640 Room Air 06/28 1449 97.2 62 20 145/70 96 06/28 0946 Room Air Intake & Output 06/29 1600 06/29 0800 06/29 0000 Intake Total 800 240 Output Total 300 500 Balance 500 -260 Intake, Oral 800 240 Output, Urine 300 500 Physical Exam General Appearance: Alert, Cooperative, No Acute Distress Skin: No Rashes HEENT: Atraumatic, EOMI Neck: Supple, No JVD Lymphatic: Cervical nl Cardiovascular: Regular Rate, Normal S1, Normal S2 Lungs: Clear to Auscultation, Normal Air Movement Abdomen: Normal Bowel Sounds, Soft, No Tenderness Neurological: Normal Speech Extremities: No Edema Current Medications: Current Medications Sig/Deangelo Start time Last Medication Dose Route Stop Time Status Admin Acetaminophen 650 MG Q6P PRN 06/24 0130 AC 06/25 PO 0203 Aspirin Buffered 81 MG QAM 06/25 1000 AC 06/28 PO 0941 Heparin Sodium 5,000 UNIT Q8 06/24 0600 AC 06/29 (Porcine) SC 0606 Oseltamivir Phosphate 30 MG BID 06/24 0600 DC 06/28 PO 06/28 2201 2134 Patient Medication 1 ED .[facility] 06/[address] [facility] ED 06/28 1408 Assessment/Plan Assessment: 81 y/o woman with a PMH of Parkinson's Disease, who presents to the ED after being sent in from her assisted living for cough and fevers. She was found to be febrile to 103.8 on the field. After arrival in the ED, she desaturated to 89% and was put on 3.0L after which she was found to be saturating at 98%. Patient is being moniotored in the hospital for the following problems 1. Acute hypoxic respiratory failure which is resolved 2. Positive influenza type A currently on Tamiflu 3. History of Parkinson's disease 4. History of pacemaker placement Plan We will continue monitoring on general medicine floor, the patient has responded well to the treatment and has been tapered off the oxygen therapy. She is currently ambulating and breathing on room air. She has completed course of tamiflu last night. PT recommends that should be stable for [facility] discharge Continue with all other home medications Patient is full code DVT prophylaxis at all times Communicated TO CM, awaiting bed placement at [facility] Problem List: 1. Influenza 2. Parkinsons disease Pain Ratin Pain Location: no pain Pain Goal: Remain pain free Pain Plan: continue to be pain free Tomorrow's Labs & Rationales: n/a AYDEE FUNK MD 06/29/16 1504: Attending MD Review Statement Attending Statement Attending MD Statement: examined this patient, discuss w/resident/PA/TAX ATTORNEY, agreed w/resident/PA/TAX ATTORNEY, reviewed EMR data (avail), discussed with nursing, discussed with case mgmt, amended to note Attending Assessment/Plan: The patient was seen and discussed with house staff. Agree with the plan of care as outlined.
[2016-06-29 14:39] VITALS: BP 138/74
[2016-06-29 23:31] VITALS: BP 130/70
[2016-06-30 07:43] VITALS: BP 156/92
--- NOTE | 2016-06-30 08:10 | PN- Housestaff ---
ANI SHAH,MONIQUE 06/30/16 0802: Subjective Follow-up For: Positive flue Complaints: no complaints Subjective: Seen and examined at bedside. sitting in chair, having breakfast without any complaints. Review of Systems Constitutional: Reports: see HPI. Objective Last 24 Hrs of Vital Signs/I&O Vital Signs Date Time Temp Pulse Resp B/P Pulse O2 O2 Flow FiO2 Ox Delivery Rate 06/30 0743 98.6 91 18 156/92 96 Room Air 06/29 2331 96.7 86 18 130/70 98 Room Air 06/29 1439 96.9 84 18 138/74 97 Room Air Intake & Output 06/30 1600 06/30 0800 06/30 0000 Intake Total 400 Output Total 250 Balance -250 400 Intake, Oral 400 Number 1 Bowel Movements Output, Urine 250 Physical Exam General Appearance: Alert, Cooperative, No Acute Distress Skin: No Rashes HEENT: Atraumatic, EOMI Neck: Supple, No JVD Cardiovascular: Regular Rate, Normal S1, Normal S2 Lungs: Clear to Auscultation, Normal Air Movement Abdomen: Normal Bowel Sounds, Soft, No Tenderness Neurological: Normal Speech Extremities: No Edema Current Medications: Current Medications Sig/Deangelo Start time Last Medication Dose Route Stop Time Status Admin Acetaminophen 650 MG Q6P PRN 06/24 0130 AC 06/25 PO 0203 Aspirin Buffered 81 MG QAM 06/25 1000 AC 06/29 PO 0949 Heparin Sodium 5,000 UNIT Q8 06/24 0600 AC 06/30 (Porcine) SC 0643 Assessment/Plan Assessment: 81 y/o woman with a PMH of Parkinson's Disease, who presents to the ED after being sent in from her assisted living for cough and fevers. She was found to be febrile to 103.8 on the field. After arrival in the ED, she desaturated to 89% and was put on 3.0L after which she was found to be saturating at 98%. Patient is being moniotored in the hospital for the following problems 1. Acute hypoxic respiratory failure which is resolved 2. Positive influenza type A currently on Tamiflu 3. History of Parkinson's disease 4. History of pacemaker placement Plan She is currently ambulating and breathing on room air. She has completed course of tamiflu 06/28/16 PT recommends that should be stable for [facility] discharge, Bed search is underway. Continue with all other home medications Patient is full code DVT prophylaxis at all times Communicated TO CM, should be going to STR today. Problem List: 1. Influenza Pain Ratin Pain Location: 0 Pain Goal: Remain pain free Pain Plan: no pain Tomorrow's Labs & Rationales: d/c today DVT/Prophylaxis: pharmacological AYDEE FUNK MD 06/30/16 1737: Attending MD Review Statement Attending Statement Attending MD Statement: examined this patient, discuss w/resident/PA/PRISM INSPECTOR, agreed w/resident/PA/PRISM INSPECTOR, reviewed EMR data (avail), discussed with nursing, discussed with case mgmt, amended to note Attending Assessment/Plan: The patient was seen and discussed with house staff. Agree with plan of care. OK to discharge to short term rehab today.
[2016-06-30 13:13] VITALS: BP 130/78
== END 2016-06-30 16:50 | DRG 193 ==
LOC: ENRESERVDT → ENRESERVTM → ERH 22:15 → 2NA 06-24 00:31 → ENPENDDIS 06-24 00:31 → ERHI 06-24 00:31 → 2NA 06-24 02:49
PROVIDERS: Internal Medicine; Pediatrics; ADMIT Student in an Organized Health Care Education/Training Program
DX: J10.1 Influenza due to other identified influenza virus with other respiratory manifestations (principal); J96.01 Acute respiratory failure with hypoxia; E87.1 Hypo-osmolality and hyponatremia; G20 Parkinson's disease; E86.0 Dehydration; Z95.0 Presence of cardiac pacemaker
CPT/HCPCS: 2NAP; 80307; 81001; 82436; 87040; 87086; 87804; 87804-59; 90662; 93005; 93010; 96374; 96375; 97110-GO; 97112-GO; 97116-GO; 97162-GP; 97530-GO; J0131; J0456; J0696; J1644; J1885; J7060

== ENCOUNTER 2017-05-08 22:58 | Emergency (ER) | payer OTHER ==
[~2017-05-08] VITALS: Ht 157.5 cm; Wt 54.4 kg
[~2017-05-08 22:58] MED LIST: ASPIRIN EC81 M1 PO; CENTRUM SILVER1 EAC3 PO; TAMIFLU30 M1 PO
--- NOTE | 2017-05-08 23:25 | ED MVC/FALL/TRAUMA COMPLAINT ---
History of Present Illness General Chief Complaint: Fall Stated Complaint: RITA UNWITNESSED FALL Source: patient Exam Limitations: no limitations Vital Signs & Intake/Output Vital Signs & Intake/Output Vital Signs Date Time Temp Pulse Resp B/P B/P Pulse O2 O2 Flow FiO2 Mean Ox Delivery Rate 05/09 1459 97.5 93 18 153/89 97 05/09 1234 99.2 72 20 155/83 95 Room Air 05/09 1019 95.2 71 18 155/70 96 05/09 0816 95.4 70 18 173/82 96 Room Air 05/09 0610 97.8 68 18 164/72 98 Room Air 05/09 0600 98 Room Air 05/09 0150 97.6 68 18 156/71 98 Room Air 05/09 0010 98 Room Air 05/09 0004 98.5 59 18 122/68 96 Room Air Allergies Coded Allergies: No Known Allergies (06/23/16) Triage Note: PT RITA FROM [facility] WHERE SHE IS REPORTED TO HAVE HAD AN UNWITNESSED FALL FROM STANDING. PT WAS FOUND ON THE FLOOR WITH SUSPECTED DOWN TIME BETWEEN 20-30 MINUTES. UNKNOWN LOC. PT TAKES 81 MG ASA DAILY. PT STATES SHE DOES NOT RECALL WHAT LED TO FALL. W-10 LISTS PT ISSUES INFLUENZA A WITH RESPIRATORY DISTRESS RECENT DX, BUT PT STATES SHE HAS NOT HAD FLU. PT ARRIVES IN C-COLLAR PLACED BY EMS. VSS. PT DROWSY BUT EASILY AROUSABLE. ANSWERS QUESTIONS APPROPRAITELY. DENIES PAIN OR ANY OTHER NEGATIVE SX. Triage Nurses Notes Reviewed? yes Onset: Abrupt Duration: unknown duration Timing: recent history Severity: mild, moderate Injuries/Fall Location: lower extremity Method of Injury: fall Loss of Consciousness: unsure Modifying Factors: Improves With: rest. Worsens With: palpation. Associated Symptoms: right knee pain HPI: 82 yo woman, h/o parkinson's, dementia from assisted living, was found on the floor outside her bathroom, unknown etiology of fall, unknown down time. She does not recall the events precipitating the fall. She notes right knee pain. (Tremayne SHAH,Jonel Barakat) Reconcile Medications Aspirin (Ecotrin*) 81 MG TABLET. 1 TAB PO QAM HEART/BLOOD (Reported) Donepezil HCl 10 MG TABLET 1 TAB PO DAILY DEMENTIA (Reported) Multivit-Min/FA/Lycopen/Lutein (Centrum Silver Tablet) 0.4 MG-300 MCG-250 MCG TABLET 1 TAB PO DAILY SUPPLEMENT (Reported) (Freida SHAH,Astrid) Past History Medical History Any Pertinent Medical History? see below for history Neurological: Parkinson's disease EENT: NONE Respiratory: pneumonia Gastrointestinal: diverticulitis History of MRSA: No History of VRE: No History of CDIFF: No Influenza Vaccine: 06/24/16 Surgical History Surgical History: none Psychosocial History Services at Home None What is your primary language Vietnamese Family History Hx Contributory? No (Tremayne SHAH,Jonel Barakat) Review of Systems Review of Systems Constitutional: Reports: no symptoms. Eyes: Reports: no symptoms. Ears, Nose, Throat, Mouth: Reports: no symptoms. Respiratory: Reports: no symptoms. Cardiovascular: Reports: no symptoms. Gastrointestinal/Abdominal: Reports: no symptoms. Genitourinary: Reports: no symptoms. Musculoskeletal: Reports: no symptoms. Skin: Reports: no symptoms. Neurological/Psychological: Reports: no symptoms. All Other Systems: Reviewed and Negative (Tremayne SHAH,Jonel Barakat) Physical Exam Physical Exam General Appearance: well developed/nourished, no apparent distress Head: atraumatic, normal appearance Eyes: Bilateral: normal appearance. Ears, Nose, Throat, Mouth: hearing grossly normal, moist mucous membrane Neck: normal inspection, supple, full range of motion Respiratory: normal breath sounds, chest non-tender, no respiratory distress, quiet respiration, lungs clear Cardiovascular: regular rate/rhythm Gastrointestinal: normal bowel sounds, soft, non-tender, no organomegaly Back: normal inspection, normal range of motion Extremities: normal range of motion, no tenderness at greater trochanter., right knee with diffuse swelling. Neurologic/Psych: no motor/sensory deficits, awake, alert, oriented x 3 Skin: intact, normal color, warm/dry Core Measures ACS in differential dx? No CVA/TIA Diagnosis No Sepsis Present: No Sepsis Focused Exam Completed? No (Tremayne SHAH,Jonel Barakat) Progress Differential Diagnosis: C/T/L spine injury, ext injury, ICH Plan of Care: Orders Procedure Date/time Status Heart Healthy Diet 05/09 L Active Heart Healthy Diet 05/09 B Complete RAPID VIRAL INFLUENZA A 05/09 0923 Complete EKG 05/09 0604 Active TROPONIN LEVEL 05/09 225 Complete PARTIAL THROMBOPLASTIN TIME 05/09 225 Complete PROTHROMBIN TIME 05/09 225 Complete EKG 05/09 225 Active TYPE & SCREEN (NOT X-MATCH) 05/09 225 Active PT Evaluate & Treat 05/09 207 Active CASE MANAGEMENT CONSULT 05/09 207 Active Therapeutic Exercise X 15 05/09 UNK Complete MOBILITY GOAL STATUS 05/09 UNK Complete MOBILITY CURRENT STATUS 05/09 UNK Complete Gait Training, 15 Min 05/09 UNK Complete PT EVAL LOW COMPLEX 20 MIN 05/09 UNK Complete URINALYSIS 05/08 2339 Complete TROPONIN LEVEL 05/08 2339 Complete COMPREHENSIVE METABOLIC PANEL 05/08 2339 Complete CBC WITHOUT DIFFERENTIAL 05/08 2339 Complete Laboratory Tests 05/09/17 0325: Troponin I 0.02, PT 12.0, INR 1.14, APTT 29 05/09/17 0150: Urine Color YEL, Urine Clarity CLEAR, Urine pH 6.0, Ur Specific [place] >= 1.030 , Urine Protein NEG, Urine Ketones TRACE H, Urine Nitrite NEG, Urine Bilirubin NEG, Urine Urobilinogen 0.2, Ur Leukocyte Esterase NEG, Ur Microscopic EXAM NOT REQUIRED, Urine Hemoglobin NEG, Urine Glucose NEG 05/09/17 0001: Anion Gap 12, Estimated GFR > 60, BUN/Creatinine Ratio 28.8 H, Glucose 97, Calcium 9.0, Total Bilirubin 0.2, AST 29, ALT 38, Alkaline Phosphatase 70, Troponin I < 0.01, Total Protein 6.4, Albumin 3.6, Globulin 2.8, Albumin/ Globulin Ratio 1.3, CBC w Diff NO MAN DIFF REQ, RBC 4.31, MCV 91.5, MCH 30.2, RDW 15.2 H, MPV 8.5, Gran % 56.3, Lymphocytes % 30.6, Monocytes % 7.5, Eosinophils % 4.4, Basophils % 1.2, Absolute Granulocytes 3.3, Absolute Lymphocytes 1.8, Absolute Monocytes 0.4, Absolute Eosinophils 0.3, Absolute Basophils 0.1, PUBS MCHC 33.0 Microbiology 05/09 930 NASOPHARYN: Influenza Virus A & B Rapid Smear - COMP 7:21 AM PATIENT SIGNED OUT TO ME PENDING PT AND CASE MANAGEMENT 9:08 AM UNSTEADY ON FEET, PENDING CASE MANAGEMENT DISPO. 4 PM PATIETN TRANSFERRED TO JAIL (Freida SHAHAstrid) Diagnostic Imaging: Viewed by Me: Radiology Read, CT Scan. Discussed w/RAD: Radiology Read, CT Scan. Radiology Impression: head/cervical ct... no acute fx/bleed PATIENT: FLOWER ADAMS PRESENT AGE: 82 PATIENT ACCOUNT NO: [id number] : 33 LOCATION: [facility] ORDERING PHYSICIAN: Jonel Casper MD SERVICE DATE: 05/08/17 EXAM TYPE: CAT - CT CERV SPINE WO IV CONTRAST; CT HEAD WO IV CONTRAST EXAMINATION: NONCONTRAST HEAD CT NONCONTRAST CERVICAL SPINE CT INDICATION INFORMATION: Pain with fall. Trauma. COMPARISON: None TECHNIQUE: Separate noncontrast CT examinations of the head and cervical spine were performed. Coronal and sagittal images were created for each examination at the technologist workstation. DLP: 1037 mGy-cm FINDINGS: Head: There is no evidence of acute intracranial hemorrhage or territorial infarction. No abnormal mass effect or midline shift is seen. Turner to white matter differentiation is well preserved. No extra-axial fluid collections are identified. No hydrocephalus. No significant volume loss. Patchy periventricular and deep white matter hypoattenuation is consistent with moderate small vessel ischemic changes. The osseous structures and soft tissues are normal. The mastoid air cells and visualized portions of the paranasal sinuses are well aerated. Cervical spine: There is anatomic alignment of the vertebral bodies and posterior elements. The atlantoaxial and atlantooccipital articulations are intact. Vertebral body heights are maintained. There is multilevel intervertebral disc space narrowing with endplate osteophyte formation and facet arthropathy. No evidence of acute fracture. No prevertebral soft tissue swelling. Visualized portions of the lung apices are unremarkable. The thyroid gland is heterogeneous with nodularity. IMPRESSION: 1. No acute intracranial findings. Moderate small vessel ischemic changes. 2. No acute fracture or malalignment of the cervical spine. Mild degenerative changes. DICTATED BY: Johnnie Jacobson MD DATE/TIME DICTATED:02/14 FLOOR COVERINGS SALESPERSON:DONNY DATE/TIME TRANSCRIBED:05/09/1725 CONFIDENTIAL, DO NOT COPY WITHOUT APPROPRIATE AUTHORIZATION. <Electronically signed in Other Vendor System> SIGNED BY: Johnnie Jacobson MD 05/09/17 0032, LS SPINE XRAY... COMPRESSION FX NOTED PATIENT: FLOWER ADAMS PRESENT AGE: 82 PATIENT ACCOUNT NO: [id number] : 33 LOCATION: [facility] ORDERING PHYSICIAN: Jonel Casper MD SERVICE DATE: EXAM TYPE: RAD - XRY-LUMBOSACRAL SPINE AP & LAT EXAMINATION: XR LUMBOSACRAL SPINE CLINICAL INFORMATION: Pain, trauma, fall COMPARISON: None TECHNIQUE: 2 views of the lumbosacral spine FINDINGS: There are mild compression deformities of the L1 and L3 vertebral bodies, of uncertain chronicity. Grade 1 anterolisthesis of L4 on L5 with mild disc space narrowing. Multilevel facet arthropathy. The sacroiliac joints are intact. The sacrum is grossly intact. The bowel gas pattern is unremarkable. IMPRESSION: Mild compression deformities of the L1 and L3 vertebral bodies, of uncertain chronicity. Mild multilevel degenerative changes. DICTATED BY: Kavon SHAH,Johnnie DATE/TIME DICTATED:02/14 FLOOR COVERINGS SALESPERSON:DONNY DATE/TIME TRANSCRIBED:05/09/17143 CONFIDENTIAL, DO NOT COPY WITHOUT APPROPRIATE AUTHORIZATION. <Electronically signed in Other Vendor System> SIGNED BY: Kavon SHAH,Johnnie 05/09/17148, RIGHT KNEE XRAY... DJD, NO FX PATIENT: FLOWER ADAMS PRESENT AGE: 82 PATIENT ACCOUNT NO: [id number] : 33 LOCATION: [facility] ORDERING PHYSICIAN: Jonel Casper MD SERVICE DATE: 05/08/17 EXAM TYPE: RAD - XRY-KNEE COMPLETE RIGHT EXAMINATION: XR KNEE, RIGHT CLINICAL INFORMATION: Trauma, pain. Fall. COMPARISON: None TECHNIQUE: Four views of the right knee. FINDINGS: No acute fracture or subluxation. Mild medial compartment joint space narrowing. Small tricompartmental marginal osteophytes. No joint effusion. The soft tissues are unremarkable. IMPRESSION: No acute fracture or subluxation. Mild tricompartmental degenerative changes. DICTATED BY: Kavon SHAH,Johnnie DATE/TIME DICTATED:05/09/17142 FLOOR COVERINGS SALESPERSON: LAUREN DATE/TIME TRANSCRIBED:05/09/17142 CONFIDENTIAL, DO NOT COPY WITHOUT APPROPRIATE AUTHORIZATION. <Electronically signed in Other Vendor System> SIGNED BY: Kavon SHAH,Johnnie 05/09/17 0147, right hip... chronic greater trochanter fx noted...full report below. PATIENT: FLOWER ADAMS PRESENT AGE: 82 PATIENT ACCOUNT NO: [id number] : LOCATION: [facility] ORDERING PHYSICIAN: Jonel Casper MD SERVICE DATE: 05/09/17 EXAM TYPE: CAT - CT LOWER EXT WO IV CONTRAST EXAMINATION: CT LOWER EXTREMITY WITHOUT CONTRAST, RIGHT CLINICAL INFORMATION: Right hip question of fracture. COMPARISON: Radiographs from today TECHNIQUE: Multidetector volumetric imaging of the right hip without IV contrast. Coronal and sagittal reformatted images were obtained and reviewed. DLP: 597 mGy-cm FINDINGS: There is a fragmented appearance of the right greater trochanter with associated heterotopic ossification. This has the appearance of a chronic fracture. No acute fracture line is seen. The femoral head is well-seated within its acetabulum. The visualized aspect of the right hemipelvis is intact. Mild degenerative changes at the right hip with joint space narrowing and small osteophytes. There is likely a small right hip joint effusion. No lymphadenopathy. The visualized aspect of the pelvis is grossly unremarkable. IMPRESSION: There is no acute fracture or dislocation. Chronic fracture of the right greater trochanter with heterotopic ossification. Likely small joint effusion at the right hip. DICTATED BY: Johnnie Jacobson MD DATE/TIME DICTATED :05/09/17249 FLOOR COVERINGS SALESPERSON:DONNY DATE/TIME TRANSCRIBED:05/09/17249 CONFIDENTIAL, DO NOT COPY WITHOUT APPROPRIATE AUTHORIZATION. < Electronically signed in Other Vendor System> SIGNED BY: Kavon SHAH, Johnnie 05/09/17256 CXR Impression: no acute abnormality, no infiltrates, normal size heart, normal mediastinum, PATIENT: FLOWER ADAMS PRESENT AGE: 82 PATIENT ACCOUNT NO: [id number] : 33 LOCATION: [facility] ORDERING PHYSICIAN: Jonel Casper MD SERVICE DATE: 05/08/17 EXAM TYPE: RAD - XRY- CHEST XRAY, TWO VIEWS EXAMINATION: XR CHEST CLINICAL INFORMATION: Pain, fall, trauma. COMPARISON: 06/23/2016 TECHNIQUE: Single AP view of the chest FINDINGS: Left chest wall dual-lead pacer in place with leads at the right atrium and right ventricle. No consolidation, edema, or effusion. No pneumothorax. The cardiomediastinal silhouette is unchanged, with a calcified aorta. No acute osseous abnormality. IMPRESSION: No acute pulmonary findings. No displaced fractures are seen. DICTATED BY: Johnnie Jacobson MD DATE/TIME DICTATED:140 FLOOR COVERINGS SALESPERSON:DONNY DATE/TIME TRANSCRIBED:05/09/17140 CONFIDENTIAL, DO NOT COPY WITHOUT APPROPRIATE AUTHORIZATION. <Electronically signed in Other Vendor System> SIGNED BY: Johnnie Jacobson MD 05/09/17146, LS spine ct... compression fx, uncertain etiology. PATIENT: FLOWER ADAMS PRESENT AGE: 82 PATIENT ACCOUNT NO: [id number] : LOCATION: [facility] ORDERING PHYSICIAN: Jonel Casper MD SERVICE DATE: 05/09/17 EXAM TYPE: CAT - CT LUMB SPINE WO IV CONTRAST EXAMINATION: CT LUMBAR SPINE WITHOUT CONTRAST CLINICAL INFORMATION: Back pain, fall. COMPARISON: Radiographs from today. CT of the chest from 06/24/2016. TECHNIQUE: Helical non-contrast CT images were obtained through the lumbar spine and 1.25 and 2.5 mm axial reconstructions were reviewed along with sagittal and coronal MPRs. DLP: 307 mGy-cm FINDINGS: There are mild compression deformities at the superior endplate of L1 and L3. There is approximately 15% loss of vertebral body height at L1. There is approximately 30% loss of vertebral body height at L3. While these are of uncertain chronicity, there was no L1 vertebral body compression deformity seen on the chest CT from 06/24/2016. These could be acute. There are no retropulsed fracture fragments. The posterior elements are appropriately aligned. Vertebral bodies remain aligned. Disc spaces remain intact. Multilevel facet arthropathy. Bibasilar atelectasis at the lungs. Atherosclerotic calcifications of the aorta. There is no hematoma in the paraspinal region. The sacroiliac joints are intact. The sacrum is intact. IMPRESSION: Mild compression deformities at the superior endplate of the L1 and L3 vertebral bodies. While these are of uncertain chronicity, the L1 vertebral body deformity is new when compared to the chest CT from 06/24/2016. With this appearance, these could be acute. Alignment is maintained without retropulsion of fragments. DICTATED BY: Johnnie Jacobson MD DATE/TIME DICTATED:05/09/17252 FLOOR COVERINGS SALESPERSON:DONNY DATE/TIME TRANSCRIBED:05/09/17252 CONFIDENTIAL, DO NOT COPY WITHOUT APPROPRIATE AUTHORIZATION. <Electronically signed in Other Vendor System> SIGNED BY: Johnnie Jacobson MD 05/09/17 0300 Initial ED EKG: paced Repeat EKG: unchanged Hand-Off Endorsed To: Astrid Lainez MD (Tremayne SHAH,Jonel Barakat) Departure Departure Condition: Stable Clinical Impression Primary Impression: Fall Secondary Impressions: Compression fracture, Greater trochanter fracture, Parkinsons disease Referrals: Unknown (PCP/Family) Departure Forms: Customer Survey General Discharge Information Comments 05/09/17, 5:43am... discussed at length with patient.... pt to have PT and casemanagement evaluation for potential short term rehab..... labs/xrays/ct scans reveal vertebral compression fx of indeterminant age and an old greater trochanteric fracture. Pt signed out to dr. lainez at 7am. (Tremayne SHAH,Jonel Barakat) Departure Time of Disposition: 1510 Disposition: ACUTE REHAB FACILITY (Astrid Lainez MD)
[2017-05-09 00:18] LABS: ABSOLUTE BASOPHIL COUNT 0.1 /CUMM (0.0-0.2); ABSOLUTE EOSINOPHIL COUNT 0.3 /CUMM (0.0-0.7); ABSOLUTE GRANULOCYTE CT 3.3 /CUMM (1.4-6.5); ABSOLUTE LYMPH COUNT 1.8 /CUMM (1.2-3.4); ABSOLUTE MONOCYTE COUNT 0.4 /CUMM (0.10-0.60); BASOPHIL % 1.2 % (0.0-2.0); EOSINOPHIL % 4.4 % (0-5); GRANULOCYTE % 56.3 % (42.2-75.2); HEMATOCRIT 39.4 % (37-47); MEAN CORPUSCULAR HGB 30.2 PG (27.0-31.0); MEAN CORPUSCULAR VOLUME 91.5 FL (81.0-99.0); MEAN PLATELET VOLUME 8.5 FL (7.4-10.4); PLATELET COUNT 156 /CUMM (130-400); RBC DISTRIBUTION WIDTH 15.2 % (11.5-14.5); RED BLOOD CELL CT 4.31 /CUMM (4.20-5.40); WHITE BLOOD CELL COUNT 5.8 /CUMM (4.8-10.8)
--- NOTE | 2017-05-09 00:32 | CT SCAN REPORT ---
EXAMINATION: NONCONTRAST HEAD CT NONCONTRAST CERVICAL SPINE CT INDICATION INFORMATION: Pain with fall. Trauma. COMPARISON: None TECHNIQUE: Separate noncontrast CT examinations of the head and cervical spine were performed. Coronal and sagittal images were created for each examination at the technologist workstation. DLP: 1037 mGy-cm FINDINGS: Head: There is no evidence of acute intracranial hemorrhage or territorial infarction. No abnormal mass effect or midline shift is seen. Turner to white matter differentiation is well preserved. No extra-axial fluid collections are identified. No hydrocephalus. No significant volume loss. Patchy periventricular and deep white matter hypoattenuation is consistent with moderate small vessel ischemic changes. The osseous structures and soft tissues are normal. The mastoid air cells and visualized portions of the paranasal sinuses are well aerated. Cervical spine: There is anatomic alignment of the vertebral bodies and posterior elements. The atlantoaxial and atlantooccipital articulations are intact. Vertebral body heights are maintained. There is multilevel intervertebral disc space narrowing with endplate osteophyte formation and facet arthropathy. No evidence of acute fracture. No prevertebral soft tissue swelling. Visualized portions of the lung apices are unremarkable. The thyroid gland is heterogeneous with nodularity. IMPRESSION: 1. No acute intracranial findings. Moderate small vessel ischemic changes. 2. No acute fracture or malalignment of the cervical spine. Mild degenerative changes.
--- NOTE | 2017-05-09 01:47 | RADIOLOGY REPORT ---
EXAMINATION: XR KNEE, RIGHT CLINICAL INFORMATION: Trauma, pain. Fall. COMPARISON: None TECHNIQUE: Four views of the right knee. FINDINGS: No acute fracture or subluxation. Mild medial compartment joint space narrowing. Small tricompartmental marginal osteophytes. No joint effusion. The soft tissues are unremarkable. IMPRESSION: No acute fracture or subluxation. Mild tricompartmental degenerative changes.
--- NOTE | 2017-05-09 01:47 | RADIOLOGY REPORT ---
EXAMINATION: XR CHEST CLINICAL INFORMATION: Pain, fall, trauma. COMPARISON: 06/23/2016 TECHNIQUE: Single AP view of the chest FINDINGS: Left chest wall dual-lead pacer in place with leads at the right atrium and right ventricle. No consolidation, edema, or effusion. No pneumothorax. The cardiomediastinal silhouette is unchanged, with a calcified aorta. No acute osseous abnormality. IMPRESSION: No acute pulmonary findings. No displaced fractures are seen.
--- NOTE | 2017-05-09 01:49 | RADIOLOGY REPORT ---
EXAMINATION: XR LUMBOSACRAL SPINE CLINICAL INFORMATION: Pain, trauma, fall COMPARISON: None TECHNIQUE: 2 views of the lumbosacral spine FINDINGS: There are mild compression deformities of the L1 and L3 vertebral bodies, of uncertain chronicity. Grade 1 anterolisthesis of L4 on L5 with mild disc space narrowing. Multilevel facet arthropathy. The sacroiliac joints are intact. The sacrum is grossly intact. The bowel gas pattern is unremarkable. IMPRESSION: Mild compression deformities of the L1 and L3 vertebral bodies, of uncertain chronicity. Mild multilevel degenerative changes.
--- NOTE | 2017-05-09 01:50 | RADIOLOGY REPORT ---
EXAMINATION: XR PELVIS CLINICAL INFORMATION: Pain, fall, trauma COMPARISON: None TECHNIQUE: AP view of the pelvis. FINDINGS: There is a fracture of the right femoral greater trochanter. This is not well-defined on the submitted image area this could be chronic. The femoral heads are well-seated within their acetabula. The pelvic rim is intact. The sacroiliac joints and pubic symphysis are intact. The bowel gas pattern is unremarkable. IMPRESSION: Right femoral greater trochanter fracture. This is not well-defined on the submitted image and could be chronic. Correlate clinically with location of pain.
--- NOTE | 2017-05-09 02:57 | CT SCAN REPORT ---
EXAMINATION: CT LOWER EXTREMITY WITHOUT CONTRAST, RIGHT CLINICAL INFORMATION: Right hip question of fracture. COMPARISON: Radiographs from today TECHNIQUE: Multidetector volumetric imaging of the right hip without IV contrast. Coronal and sagittal reformatted images were obtained and reviewed. DLP: 597 mGy-cm FINDINGS: There is a fragmented appearance of the right greater trochanter with associated heterotopic ossification. This has the appearance of a chronic fracture. No acute fracture line is seen. The femoral head is well-seated within its acetabulum. The visualized aspect of the right hemipelvis is intact. Mild degenerative changes at the right hip with joint space narrowing and small osteophytes. There is likely a small right hip joint effusion. No lymphadenopathy. The visualized aspect of the pelvis is grossly unremarkable. IMPRESSION: There is no acute fracture or dislocation. Chronic fracture of the right greater trochanter with heterotopic ossification. Likely small joint effusion at the right hip.
--- NOTE | 2017-05-09 03:00 | CT SCAN REPORT ---
EXAMINATION: CT LUMBAR SPINE WITHOUT CONTRAST CLINICAL INFORMATION: Back pain, fall. COMPARISON: Radiographs from today. CT of the chest from 06/24/2016. TECHNIQUE: Helical non-contrast CT images were obtained through the lumbar spine and 1.25 and 2.5 mm axial reconstructions were reviewed along with sagittal and coronal MPRs. DLP: 307 mGy-cm FINDINGS: There are mild compression deformities at the superior endplate of L1 and L3. There is approximately 15% loss of vertebral body height at L1. There is approximately 30% loss of vertebral body height at L3. While these are of uncertain chronicity, there was no L1 vertebral body compression deformity seen on the chest CT from 06/24/2016. These could be acute. There are no retropulsed fracture fragments. The posterior elements are appropriately aligned. Vertebral bodies remain aligned. Disc spaces remain intact. Multilevel facet arthropathy. Bibasilar atelectasis at the lungs. Atherosclerotic calcifications of the aorta. There is no hematoma in the paraspinal region. The sacroiliac joints are intact. The sacrum is intact. IMPRESSION: Mild compression deformities at the superior endplate of the L1 and L3 vertebral bodies. While these are of uncertain chronicity, the L1 vertebral body deformity is new when compared to the chest CT from 06/24/2016. With this appearance, these could be acute. Alignment is maintained without retropulsion of fragments.
[2017-05-09 04:05] LABS: PTT 29 SEC (25-37)
[2017-05-09] MEDS ORDERED: DONEPEZIL HCL10 M1 PO (07:47)
[2017-05-09 15:50] VITALS: BP 175/87
== END 2017-05-09 16:35 ==
LOC: ERH 22:58
PROVIDERS: Pediatrics
DX: S72.111A Displaced fracture of greater trochanter of right femur, initial encounter for closed fracture (principal); S32.019A Unspecified fracture of first lumbar vertebra, initial encounter for closed fracture; G20 Parkinson's disease; W19.XXXA Unspecified fall, initial encounter; Y92.129 Unspecified place in nursing home as the place of occurrence of the external cause; Y93.9 Activity, unspecified
CPT/HCPCS: 71046; 72100; 72170; 73562-RT; 81003; 86920; 86922; 87804; 87804-59; 93005; 93010; 97110-GP; 97116-GP; 97161-GP; G8978-GP; G8979-GP